=== PATIENT | female | born 1990 | race Caucasian/White ===

== ENCOUNTER 2016-11-03 09:55 | Emergency (ER) | payer BC ==
[~2016-11-03] VITALS: Ht 157.5 cm; Wt 51.3 kg
[~2016-11-03 09:55] MED LIST: CAMILA0.35 MG PO; DOCUSATE SODIU100 MG PO; GRALISE600 MG PO; HEMOCYTE324 MG PO; IBUPROFEN800 MG PO; NOHOMEMEDS; REGLAN10 MG PO
[2016-11-03] MEDS ORDERED: CLINDAMYCIN HC300 MG PO (10:39)
[2016-11-03 10:46] VITALS: BP 148/90
== END 2016-11-03 10:47 | disposition home or self-care (01) ==
LOC: EME 09:55
DX: K04.7 Periapical abscess without sinus (principal); F17.200 Nicotine dependence, unspecified, uncomplicated
CPT/HCPCS: 99281; 99283